=== PATIENT | female | born 1990 | race Caucasian/White ===

== ENCOUNTER 2025-08-29 15:53 | Emergency (ER) | payer OTHER, SELFPAY ==
[2025-08-29 15:55] VITALS: BP 117/73
--- NOTE | 2025-08-29 16:36 | ED.GENMED ---
History of Present Illness
General
Chief Complaint: Vaginal Bleeding
Source: patient
Exam Limitations: none
Time Seen by Provider: 08/29/25 16:25
History of Present Illness
History of Present Illness:
35-year-old female G4, P3 currently 14 weeks presents with onset of vaginal bleeding today. She said it was quite brisk about an hour and a half ago onset. She denies any abdominal pain. She denies any large clots. She follows with [facility] and was advised to come here for evaluation. No other complaints at this time
Phy Exam
Physical Exam
Physical Exam:
General: Well-appearing female no acute respiratory distress
HEENT: Normal cephalic atraumatic
Heart: Regular rate and rhythm
Lungs: Clear no wheeze
Abdomen is soft nontender extremities: No cyanosis
Course
Orders/Labs/Results
Orders:
Orders
08/29/25 16:35
US Limited Urgent
Reason For Exam: bleeding
08/29/25 16:51
Beta HCG Quantitative Urgent
Is this a screen?: No
Complete Blood Count/With Diff Urgent
Comprehensive Metabolic Panel Urgent
Abnormal Lab Results
08/29/25
16:51
Sodium 130 L mmol/L
(135-145)
Creatinine 0.5 L mg/dL
(0.6-1.0)
08/29/25 16:51
08/29/25 16:51
Vital Signs
Initial and Last Documented VS:
Initial Vital Signs
Temp Pulse Resp BP Pulse Ox
97.9 F 94 20 117/73 100
08/29/25 15:55 08/29/25 15:55 08/29/25 15:55 08/29/25 15:55 08/29/25 15:55
Last Documented Vital Signs
Temp Pulse Resp BP Pulse Ox
97.9 F 94 20 117/73 100
08/29/25 15:55 08/29/25 15:55 08/29/25 15:55 08/29/25 15:55 08/29/25 16:38
MDM/Problems Addressed
Differential Diagnosis Includes:
Patient with painless vaginal bleeding since 3 PM today. Currently 14 weeks along. Will order ultrasound check labs and blood type as well as beta-hCG. Patient is nontoxic otherwise.
*Pulse Oximetry
SaO2: 100
Oxygen Mode of Delivery: Room air
Patient hypoxic: no
*Critical Care Note
Total Time (30-74mins, 75-104mins- exclusive of procedures): Not Applicable
Update Note
Update Note:
Ultrasound shows heart rate at 142 beats a minute. Beta-hCG is under 1900. Patient still is slightly bleeding upon reassessment but vital signs are stable hemoglobin is normal. She has an appointment with her OB in a couple days and advise
she keep. Etiology of bleeding unclear but possible threatened . Advised pelvic rest and return precautions were given
ED Attending Note
-
Portions of this chart may have been created with voice recognition software.� Occasional wrong word or��sound alike� substitutions may have occurred due to the inherent limitations of voice recognition software.
Discharge Plan
Departure
Patient Disposition: Home (Routine Discharge)
Date of Disposition: 08/29/25
Time of Disposition: 19:42
Patient with high blood pressure during this ER visit?: No
Discharge Problem:
Bleeding in early
Instructions: Threatened Miscarriage (DC)
Referrals:
Heidy Hebert CRNP [Family Provider, Family Practice]
Activity Restrictions/Additional Instructions:
Rest. Stay hydrated. Please follow-up with your [facility]. Return here if needed.
Interventions
Interventions:
*Risk Screen - Suicide Last Done: 08/29/25 15:55
*General Assessment Last Done: 08/29/25 15:55
*Neglect/Abuse Screening Last Done: 08/29/25 15:55
*ED- Fall Risk Assessment Last Done: 08/29/25 16:43
*ED COVID-19 Vaccine History Last Done: 08/29/25 16:43
*ED Influenza Vaccine History Last Done: 08/29/25 16:43
ED-Female Genitourinary Assessment Last Done: 08/29/25 16:43
Discharge Date and Time
Print Language: GEORGIAN
[2025-08-29 16:42] VITALS: BMI 25.5
[2025-08-29 16:58] LABS: Hematocrit 38.3 % (37.0-47.0); Hemoglobin 13.4 g/dL (12.0-16.0); Mean Corp Hgb Conc. 35.0 g/dL (33.0-37.0); Mean Corpuscular Volume 85.9 fL (81.0-99.0); Nucleated Red Blood Cells % 0 %; Platelet Count 175 10^3/uL (130-400); Red Cell Dist. Width 13.9 % (11.5-14.5)
[2025-08-29 17:21] LABS: ALT (SGPT) 25 U/L (0-35); AST (SGOT) 24 U/L (14-36); Albumin 4.2 g/dl (3.5-5.0); Alkaline Phosphatase 45 U/L (38-126); Blood Urea Nitrogen 9 mg/dl (7-17); Calcium 9.5 mg/dl (8.4-10.2); Carbon Dioxide 23 mmol/L (22-30); Chloride 101 mmol/L (98-107); Estimated Creatinine Clearance 100 ml/min; Glucose 88 mg/dl (70-99); Potassium 3.9 mmol/L (3.5-5.1); Sodium 130 mmol/L (135-145); Total Protein 7.4 g/dl (6.3-8.2); eGFR > 60.00
[2025-08-29 18:53] LABS: Beta HCG Quantitative 109190.00 mIU/ml
[2025-08-29 20:02] VITALS: BP 120/61
== END 2025-08-29 20:04 | disposition home or self-care (01) ==
LOC: EMR 15:53
PROVIDERS: Physician Assistant; EMERGENCY PHYSICIAN Emergency Medicine; FAMILY PHYSICIAN Nurse Practitioner Family
DX: O20.9 Hemorrhage in early pregnancy, unspecified (principal); Z3A.14 14 weeks gestation of pregnancy
CPT/HCPCS: 99284; 76815; 80053; 84702; 85025